=== PATIENT | female | born 1960 | race Caucasian/White ===

== ENCOUNTER 2017-11-04 20:24 | Inpatient (IN) | payer OTHER ==
[~2017-11-04] VITALS: Ht 154.9 cm; Wt 72.1 kg
[2017-11-04] MEDS ORDERED: NITROGLYCERIN 0.4MG TABLET SL SL PRN (21:15)
[2017-11-04 22:09] LABS: BASOPHILS % 0.7 % (0.0-2.0); EOSINOPHILS % 1.6 % (0.0-5.0); HEMATOCRIT. 43.3 % (36.0-48.0); HEMOGLOBIN. 15.1 g/dL (12.0-16.0); LYMPHOCYTES % 29.5 % (20.0-50.0); MEAN PLATELET VOLUME 8.1 fl (7.4-10.4); MONOCYTES % 5.8 % (2.0-8.0); NEUTROPHILS % 62.4 % (40.0-76.0); PLATELET 391 x1000/uL (130-400); RED BLOOD CELL COUNT 4.71 mill/uL (4.2-5.4); RED CELL DISTRIBUTION WIDTH 12.6 % (11.6-14.6)
[2017-11-04 22:12] LABS: CHLORIDE 100 mEq/L (98-107)
[2017-11-04 22:18] LABS: D-DIMER 0.44 mg/L FEU (<0.50); INR 0.9; PARTIAL THROMBOPLASTIN TIME 24.7 sec (23.4-31.0); PROTHROMBIN TIME 9.5 sec (9.1-11.1)
[2017-11-05] MEDS ORDERED: MORPHINE SULFATE 4 MG/ML CPJ (NOT FOR IM USE) IV PRN
[2017-11-05] MEDS ORDERED: ACETAMINOPHEN 325MG TABLET PO PRN
[2017-11-05] MEDS ORDERED: HYDROCODONE/ACETAMINOPHEN 5/325MG TABLET PO PRN
[2017-11-05] MEDS ORDERED: DOCUSATE SODIUM 100MG CAPSULE PO PRN
[2017-11-05] MEDS ORDERED: ONDANSETRON HCL 4MG/2ML VIAL IV PRN
[2017-11-05] MEDS ORDERED: CLONIDINE 0.1MG TABLET PO PRN
[2017-11-05] MEDS ORDERED: ASPIRIN 325MG EC TABLET PO ONE (01:30)
[2017-11-05 04:26] VITALS: BP 144/63
[2017-11-05 05:22] VITALS: BP 144/63
[2017-11-05] MEDS ORDERED: DEXTROSE 50% WATER 50ML SYRINGE IV PRN (05:30)
[2017-11-05] MEDS ORDERED: CEPH500T PO (05:41)
[2017-11-05] MEDS ORDERED: LISI40TA4 PO (05:41)
[2017-11-05] MEDS ORDERED: ATOR10TA69 PO (05:41)
[2017-11-05] MEDS ORDERED: ATEN-42 PO (05:41)
[2017-11-05] MEDS ORDERED: AMLO10TA80 PO (05:41)
[2017-11-05] MEDS ORDERED: HYDR12.529 PO (05:41)
[2017-11-05] MEDS ORDERED: ALPR0.5T PO (05:41)
[2017-11-05] MEDS ORDERED: ONDANSETRON 4MG ODT PO PRN (05:45)
[2017-11-05] MEDS: INSULIN LISPRO 100 UNITS/ML SUBCUT SCH ×2 (06:53→13:33)
[2017-11-05] MEDS: BLOOD SUGAR DIAGNOSTIC STRIP TEST SCH ×2 (06:53→11:45)
[2017-11-05 08:00] VITALS: BP 111/52
[2017-11-05 08:04] LABS: CHLORIDE 101 mEq/L (98-107)
[2017-11-05 08:11] LABS: BASOPHILS % 0.6 % (0.0-2.0); EOSINOPHILS % 1.8 % (0.0-5.0); HEMATOCRIT. 41.1 % (36.0-48.0); HEMOGLOBIN. 14.1 g/dL (12.0-16.0); LYMPHOCYTES % 34.7 % (20.0-50.0); MEAN CORPUSCULAR HEMOGLOBIN 31.9 pg (28.0-32.0); MEAN CORPUSCULAR VOLUME 93.1 fL (81.0-99.0); MEAN PLATELET VOLUME 8.2 fl (7.4-10.4); MONOCYTES % 6.8 % (2.0-8.0); NEUTROPHILS % 56.1 % (40.0-76.0); PLATELET 382 x1000/uL (130-400); RED BLOOD CELL COUNT 4.42 mill/uL (4.2-5.4); RED CELL DISTRIBUTION WIDTH 12.8 % (11.6-14.6)
[2017-11-05 08:25] LABS: CREATINE KINASE 77 IU/L (26-192); LDL CHOLESTEROL 158 mg/dL (5-100)
[2017-11-05 08:27] LABS: HDL CHOLESTEROL 47 mg/dL (40-59)
[2017-11-05 08:30] LABS: CREATINE KINASE MB FRACTION < 1.0 ng/mL (0.5-3.6)
[2017-11-05] MEDS ORDERED: ASPIRIN 81MG EC TABLET PO SCH (09:00)
[2017-11-05] MEDS ORDERED: AMLODIPINE 10MG TABLET PO SCH (09:00)
[2017-11-05] MEDS ORDERED: PNEUMOCOCCAL 23-VAL P-SAC VAC 0.5 ML IM ONE (12:00)
[2017-11-05 12:15] VITALS: BP 114/76
[2017-11-05 14:38] VITALS: BP 114/76
== END 2017-11-05 15:15 | disposition home or self-care (01) | DRG 313 ==
LOC: EDBEDREQ 21:11 → ER 22:12 → SUPCPDRO 23:53 → 5WST 11-05 01:18 → EDBEDREQTM 11-05 01:22 → EDBEDREQ 11-05 01:22 → ENRESERV 11-05 02:32
PROVIDERS: ADMIT Hospitalist; ATTEND Hospitalist
DX: R07.89 Other chest pain (principal); E11.9 Type 2 diabetes mellitus without complications; E78.00 Pure hypercholesterolemia, unspecified; E78.5 Hyperlipidemia, unspecified; I10 Essential (primary) hypertension; Z91.041 Radiographic dye allergy status
CPT/HCPCS: 36415; 71045; 74176; 80053; 80061; 82550; 82553; 82962; 83690; 83880; 84484; 85025; 85379; 85610; 85730; 93005; 93306; 99285; J1815